=== PATIENT | female | born 1985 | race Two or more races ===

== ENCOUNTER 2018-09-01 07:23 | Emergency (ER) | payer OTHER ==
[~2018-09-01] VITALS: Ht 167.6 cm; Wt 93.2 kg
[2018-09-01 07:28] VITALS: Ht 167.6 cm; Wt 93.2 kg
[2018-09-01 08:39] LABS: BASOPHIL % 0.2 % (0-2); PLATELET COUNT 231 x10^3mcL (130-400); RED CELL DISTRIBUTION WIDTH 13.4 % (11.5-14.5)
[2018-09-01 09:58] VITALS: BP 135/77
== END 2018-09-01 10:34 | disposition home or self-care (01) ==
LOC: ED 07:23
PROVIDERS: Specialist
DX: O03.9 Complete or unspecified spontaneous abortion without complication (principal); N83.201 Unspecified ovarian cyst, right side
CPT/HCPCS: 36415